=== PATIENT | female | born 1945 | race Two or more races ===

== ENCOUNTER 2016-10-16 16:11 | Emergency (ER) | payer SELFPAY ==
[~2016-10-16] VITALS: Ht 170.2 cm; Wt 87.0 kg
[2016-10-16 16:18] VITALS: BP 170/82
== END 2016-10-17 01:14 | disposition left against medical advice (07) ==
LOC: ER 10-17 01:05
DX: R07.89 Other chest pain (principal); Z53.21 Procedure and treatment not carried out due to patient leaving prior to being seen by health care provider
CPT/HCPCS: 93005